=== PATIENT | male | born 1955 | race African-American/Black ===

== ENCOUNTER 2017-03-16 16:45 | Inpatient (IN) | payer OTHER ==
[~2017-03-16] VITALS: Ht 175.3 cm; Wt 77.6 kg
[2017-03-16 19:30] LABS: INR 1.1; PROTHROMBIN TIME 11.9 sec (9.4-11.6)
[2017-03-16 19:32] LABS: BASOPHILS % 0.6 % (0.0-2.0); EOSINOPHILS % 1.1 % (0.0-5.0); HEMATOCRIT. 40.3 % (42.0-52.0); HEMOGLOBIN. 13.5 g/dL (14.0-18.0); LYMPHOCYTES % 38.1 % (20.0-50.0); MEAN CORPUSCULAR HEMOGLOBIN 33.4 pg (28.0-32.0); MEAN CORPUSCULAR VOLUME 99.8 fL (80.0-94.0); MEAN PLATELET VOLUME 8.6 fl (7.4-10.4); MONOCYTES % 5.6 % (2.0-8.0); NEUTROPHILS % 54.6 % (40.0-76.0); PLATELET 178 x1000/uL (130-400); RED BLOOD CELL COUNT 4.04 mill/uL (4.7-6.1); RED CELL DISTRIBUTION WIDTH 14.8 % (11.6-14.6)
[2017-03-16 19:34] LABS: CLARITY URINE CLEAR (CLEAR); COLOR URINE DARK YELLOW (YELLOW); KETONES URINE NEGATIVE (NEGATIVE); LEUKOCYTE ESTERASE URINE TRACE (NEGATIVE); NITRITE URINE NEGATIVE (NEGATIVE); OCCULT BLOOD URINE NEGATIVE (NEGATIVE); PROTEIN URINE 1+ (NEGATIVE)
[2017-03-16 19:41] LABS: CARBON DIOXIDE 24 mEq/L (21-32); CHLORIDE 107 mEq/L (98-107); TROPONIN I 0.07 ng/mL (0.00-0.04)
[2017-03-16 19:55] LABS: *AMPHETAMINES SCREEN URINE NEGATIVE (NEGATIVE); *BARBITURATES SCREEN URINE NEGATIVE (NEGATIVE); *BENZODIAZEPINES SCREEN URINE NEGATIVE (NEGATIVE); *COCAINE SCREEN URINE NEGATIVE (NEGATIVE); CANNABINOID URINE SCREEN NEGATIVE (NEGATIVE); METHADONE URINE SCREEN NEGATIVE (NEGATIVE); OPIATES URINE SCREEN NEGATIVE (NEGATIVE); PHENCYCLIDINE URINE SCREEN NEGATIVE (NEGATIVE)
[2017-03-16] MEDS ORDERED: SODIUM CHLORIDE 0.9% 1,000 ML IV ONE (20:15)
[2017-03-16] MEDS ORDERED: ONDANSETRON HCL 4MG/2ML VIAL IV ONE (20:15)
[2017-03-16] MEDS ORDERED: ACETAMINOPHEN 325MG TABLET PO PRN (23:30)
[2017-03-16] MEDS ORDERED: MAGNESIUM 2 G PREMIX 50 ML IV NR (23:30)
[2017-03-16] MEDS ORDERED: ONDANSETRON HCL 4MG/2ML VIAL IV PRN (23:30)
[2017-03-16] MEDS: FUROSEMIDE 40MG/4ML VIAL IV SCH (23:30)
[2017-03-16] MEDS ORDERED: CLONIDINE 0.1MG TABLET PO PRN (23:30)
[2017-03-16] MEDS ORDERED: IPRATROPIUM/ALBUTEROL 0.5-3(2.5)MG/3ML NEB INH PRN (23:30)
[2017-03-16] MEDS ORDERED: MAGNESIUM/ALUMINUM HYDROXIDE/SIMETHICONE 30ML UDC PO PRN (23:30)
[2017-03-16] MEDS ORDERED: AZITHROMYCIN 500 MG TABLET PO SCH (23:30)
[2017-03-17] MEDS ORDERED: FUROSEMIDE 40MG/4ML VIAL IV NR (00:30)
[2017-03-17 01:07] LABS: ETHANOL BLOOD < 10 mg/dL
[2017-03-17 05:47] LABS: BASOPHILS % 0.8 % (0.0-2.0); HEMATOCRIT. 40.3 % (42.0-52.0); HEMOGLOBIN. 13.5 g/dL (14.0-18.0); LYMPHOCYTES % 35.1 % (20.0-50.0); MEAN CORPUSCULAR HEMOGLOBIN 33.6 pg (28.0-32.0); MEAN CORPUSCULAR VOLUME 100.1 fL (80.0-94.0); MEAN PLATELET VOLUME 8.3 fl (7.4-10.4); NEUTROPHILS % 56.1 % (40.0-76.0); PLATELET 181 x1000/uL (130-400); RED BLOOD CELL COUNT 4.03 mill/uL (4.7-6.1); RED CELL DISTRIBUTION WIDTH 14.8 % (11.6-14.6)
[2017-03-17 06:08] LABS: CARBON DIOXIDE 26 mEq/L (21-32); CHLORIDE 108 mEq/L (98-107); CREATINE KINASE 162 IU/L (39-308); HDL CHOLESTEROL 26 mg/dL (40-59); LDL CHOLESTEROL 107 mg/dL (5-100); TROPONIN I 0.05 ng/mL (0.00-0.04)
[2017-03-17 06:13] LABS: CREATINE KINASE MB FRACTION 3.2 ng/mL (0.5-3.6)
[2017-03-17 08:47] VITALS: BP 139/94
[2017-03-17] MEDS ORDERED: AZITHROMYCIN 500 MG TABLET PO SCH (09:00)
[2017-03-17] MEDS ORDERED: FUROSEMIDE 40MG/4ML VIAL IV SCH (09:00)
[2017-03-17] MEDS: FUROSEMIDE 40MG/4ML VIAL IV SCH (09:56)
[2017-03-17] MEDS: ENOXAPARIN 40MG/0.4ML SYR SUBCUT SCH (09:56)
[2017-03-17 11:52] VITALS: BP 139/84
[2017-03-17 13:41] LABS: HEPATITIS B SURFACE ANTIGEN NEGATIVE
[2017-03-17 14:09] LABS: HEPATITIS A AB IGM NEGATIVE (NEGATIVE)
[2017-03-17 14:55] LABS: CREATINE KINASE MB FRACTION 2.8 ng/mL (0.5-3.6); TROPONIN I 0.05 ng/mL (0.00-0.04)
[2017-03-17 15:02] LABS: HEPATITIS B CORE AB IGM REACTIVE
[2017-03-17 16:03] VITALS: BP 137/84
[2017-03-17 20:00] VITALS: BP 141/72
[2017-03-17] MEDS: ATORVASTATIN CALCIUM 10MG TABLET PO SCH (20:19)
[2017-03-17 23:40] VITALS: BP 137/78
[2017-03-18 04:00] VITALS: BP 140/88
[2017-03-18 06:48] LABS: BASOPHILS % 0.6 % (0.0-2.0); EOSINOPHILS % 1.3 % (0.0-5.0); HEMATOCRIT. 40.4 % (42.0-52.0); HEMOGLOBIN. 13.6 g/dL (14.0-18.0); LYMPHOCYTES % 33.1 % (20.0-50.0); MEAN CORPUSCULAR HEMOGLOBIN 33.5 pg (28.0-32.0); MEAN CORPUSCULAR VOLUME 99.4 fL (80.0-94.0); MONOCYTES % 6.1 % (2.0-8.0); NEUTROPHILS % 58.9 % (40.0-76.0); PLATELET 176 x1000/uL (130-400); RED BLOOD CELL COUNT 4.07 mill/uL (4.7-6.1); RED CELL DISTRIBUTION WIDTH 14.4 % (11.6-14.6)
[2017-03-18 07:11] LABS: CHLORIDE 103 mEq/L (98-107)
[2017-03-18 07:23] LABS: CARBON DIOXIDE 24 mEq/L (21-32)
[2017-03-18 07:26] VITALS: BP 148/83
[2017-03-18] MEDS: FUROSEMIDE 40MG/4ML VIAL IV SCH (08:53)
[2017-03-18] MEDS: ENOXAPARIN 40MG/0.4ML SYR SUBCUT SCH (08:53)
[2017-03-18] MEDS: POTASSIUM CHLORIDE 20MEQ TABLET SR PO SCH (11:29)
[2017-03-18] MEDS: AZITHROMYCIN 500 MG TABLET PO SCH (11:30)
[2017-03-18] MEDS: LISINOPRIL 5MG TABLET PO SCH (11:30)
[2017-03-18 12:52] VITALS: BP 135/95
[2017-03-18 16:00] VITALS: BP 141/92
[2017-03-18 20:00] VITALS: BP 129/87
[2017-03-18] MEDS: AMIODARONE HCL 200 MG TABLET PO SCH (21:15)
[2017-03-18] MEDS: ATORVASTATIN CALCIUM 10MG TABLET PO SCH (21:15)
[2017-03-18] MEDS: CARVEDILOL 6.25 MG TABLET PO SCH (21:16)
[2017-03-18] MEDS: CEFTRIAXONE 1 G PREMIX 50 ML IV SCH (21:33)
[2017-03-18] MEDS: ZOLPIDEM TARTRATE 5MG TABLET PO PRN (21:50)
[2017-03-19] VITALS: BP 135/66
[2017-03-19 04:00] VITALS: BP 122/71
[2017-03-19 06:16] LABS: BASOPHILS % 0.7 % (0.0-2.0); EOSINOPHILS % 1.5 % (0.0-5.0); HEMATOCRIT. 39.2 % (42.0-52.0); HEMOGLOBIN. 13.1 g/dL (14.0-18.0); LYMPHOCYTES % 38.6 % (20.0-50.0); MEAN CORPUSCULAR HEMOGLOBIN 33.3 pg (28.0-32.0); MEAN CORPUSCULAR VOLUME 99.7 fL (80.0-94.0); MEAN PLATELET VOLUME 8.8 fl (7.4-10.4); MONOCYTES % 5.7 % (2.0-8.0); NEUTROPHILS % 53.5 % (40.0-76.0); PLATELET 173 x1000/uL (130-400); RED BLOOD CELL COUNT 3.94 mill/uL (4.7-6.1); RED CELL DISTRIBUTION WIDTH 14.6 % (11.6-14.6)
[2017-03-19 08:04] VITALS: BP 130/82
[2017-03-19] MEDS: LISINOPRIL 5MG TABLET PO SCH (08:13)
[2017-03-19] MEDS: AZITHROMYCIN 500 MG TABLET PO SCH (08:13)
[2017-03-19] MEDS: CARVEDILOL 6.25 MG TABLET PO SCH (08:13)
[2017-03-19] MEDS: AMIODARONE HCL 200 MG TABLET PO SCH ×3 (08:13→18:41)
[2017-03-19] MEDS: POTASSIUM CHLORIDE 20MEQ TABLET SR PO SCH (08:13)
[2017-03-19] MEDS: ENOXAPARIN 40MG/0.4ML SYR SUBCUT SCH (08:14)
[2017-03-19] MEDS: FUROSEMIDE 40MG/4ML VIAL IV SCH (08:14)
[2017-03-19 08:30] LABS: CARBON DIOXIDE 24 mEq/L (21-32); CHLORIDE 105 mEq/L (98-107)
[2017-03-19 11:55] VITALS: BP 96/64
[2017-03-19 15:57] VITALS: BP 105/79
[2017-03-19 20:00] VITALS: BP 126/69
[2017-03-19] MEDS: CARVEDILOL 12.5MG TABLET PO SCH (20:27)
[2017-03-19] MEDS: CEFTRIAXONE 1 G PREMIX 50 ML IV SCH (20:28)
[2017-03-19] MEDS: ATORVASTATIN CALCIUM 10MG TABLET PO SCH (20:33)
[2017-03-20] VITALS: BP 100/61
[2017-03-20] MEDS: ZOLPIDEM TARTRATE 5MG TABLET PO PRN (00:50)
[2017-03-20 04:00] VITALS: BP 118/52
[2017-03-20 06:44] LABS: BASOPHILS % 0.7 % (0.0-2.0); EOSINOPHILS % 1.1 % (0.0-5.0); HEMATOCRIT. 39.8 % (42.0-52.0); HEMOGLOBIN. 12.9 g/dL (14.0-18.0); LYMPHOCYTES % 34.3 % (20.0-50.0); MEAN CORPUSCULAR HEMOGLOBIN 32.5 pg (28.0-32.0); MEAN CORPUSCULAR VOLUME 99.9 fL (80.0-94.0); MEAN PLATELET VOLUME 8.7 fl (7.4-10.4); MONOCYTES % 5.4 % (2.0-8.0); NEUTROPHILS % 58.5 % (40.0-76.0); PLATELET 195 x1000/uL (130-400); RED BLOOD CELL COUNT 3.98 mill/uL (4.7-6.1); RED CELL DISTRIBUTION WIDTH 14.8 % (11.6-14.6)
[2017-03-20 07:54] VITALS: BP 110/71
[2017-03-20] MEDS: AMIODARONE HCL 200 MG TABLET PO SCH (08:13)
[2017-03-20] MEDS: LISINOPRIL 5MG TABLET PO SCH (08:13)
[2017-03-20] MEDS: CARVEDILOL 12.5MG TABLET PO SCH (08:13)
[2017-03-20] MEDS: FUROSEMIDE 40MG/4ML VIAL IV SCH (08:13)
[2017-03-20] MEDS: ENOXAPARIN 40MG/0.4ML SYR SUBCUT SCH (08:13)
[2017-03-20] MEDS: POTASSIUM CHLORIDE 20MEQ TABLET SR PO SCH (08:13)
[2017-03-20] MEDS: AZITHROMYCIN 500 MG TABLET PO SCH (08:13)
[2017-03-20 08:14] LABS: CHLORIDE 105 mEq/L (98-107)
[2017-03-20 08:34] LABS: CARBON DIOXIDE 23 mEq/L (21-32)
[2017-03-20] MEDS ORDERED: ATOR10TA PO (12:15)
[2017-03-20] MEDS ORDERED: LISI-186 PO (12:15)
[2017-03-20] MEDS ORDERED: COR12 PO (12:15)
[2017-03-20] MEDS ORDERED: POTA20TA82 PO (12:15)
[2017-03-20] MEDS ORDERED: AZIT500T5 PO (12:15)
[2017-03-20] MEDS ORDERED: FURO-151 PO (12:15)
[2017-03-20] MEDS ORDERED: AMI2 PO (12:15)
[2017-03-20 12:24] VITALS: BP 110/71
== END 2017-03-20 13:30 | disposition home or self-care (01) | DRG 291 ==
LOC: ER 18:14 → 8WST 21:00 → ENRESERV 03-17 06:57
PROVIDERS: ADMIT Internal Medicine; ATTEND Internal Medicine
DX: I11.0 Hypertensive heart disease with heart failure (principal); J18.9 Pneumonia, unspecified organism; I27.20 Pulmonary hypertension, unspecified; E86.0 Dehydration; B16.9 Acute hepatitis B without delta-agent and without hepatic coma; I42.0 Dilated cardiomyopathy; E83.42 Hypomagnesemia; E83.51 Hypocalcemia; I47.1 Supraventricular tachycardia; J44.0 Chronic obstructive pulmonary disease with (acute) lower respiratory infection; N39.0 Urinary tract infection, site not specified; I50.23 Acute on chronic systolic (congestive) heart failure; I42.9 Cardiomyopathy, unspecified; D53.9 Nutritional anemia, unspecified; E78.5 Hyperlipidemia, unspecified; F17.210 Nicotine dependence, cigarettes, uncomplicated; R79.1 Abnormal coagulation profile; R16.0 Hepatomegaly, not elsewhere classified; R74.0 Nonspecific elevation of levels of transaminase and lactic acid dehydrogenase [LDH]; K30 Functional dyspepsia; R74.8 Abnormal levels of other serum enzymes
CPT/HCPCS: 36415; 71010; 76705; 80048; 80053; 80061; 80305; 81001; 82550; 82553; 83036; 83735; 83880; 84443; 84484; 85025; 85610; 86703; 86705; 86709; 86803; 87040; 87070; 87077; 87086; 87186; 87340; 87430; 87517; 87804; 93005; 93306; 93970; 96361; 96374; 96375; 96376; 99285; G0482; J0696; J1650; J1940; J2405; J3475; J7030; J7050

== ENCOUNTER 2019-12-13 00:48 | Inpatient (IN) | payer SELFPAY ==
[~2019-12-13] VITALS: Ht 175.3 cm; Wt 86.6 kg
[~2019-12-13 00:48] MED LIST: AMI2 PO; ATOR10TA PO; AZIT500T8 PO; COR12 PO; FURO-151 PO; LISI-186 PO; POTA20TA82 PO
[2019-12-13] MEDS ORDERED: NITROGLYCERIN 0.4MG TABLET SL SL PRN (03:00)
[2019-12-13] MEDS ORDERED: ASPIRIN 81MG TABLET PO ONE (03:00)
[2019-12-13 04:06] LABS: BASOPHILS % 0.8 % (0.0-2.0); EOSINOPHILS % 1.4 % (0.0-5.0); HEMATOCRIT. 37.1 % (42.0-52.0); HEMOGLOBIN. 12.4 g/dL (14.0-18.0); LYMPHOCYTES % 36.7 % (20.0-50.0); MEAN CORPUSCULAR VOLUME 101.8 fL (80.0-94.0); MEAN PLATELET VOLUME 8.6 fl (7.4-10.4); MONOCYTES % 6.1 % (2.0-8.0); PLATELET 152 x1000/uL (130-400); RED BLOOD CELL COUNT 3.64 mill/uL (4.7-6.1); RED CELL DISTRIBUTION WIDTH 15.8 % (11.6-14.6)
[2019-12-13 04:12] LABS: CHLORIDE 108 mEq/L (98-107)
[2019-12-13 10:20] VITALS: BP 146/86
[2019-12-13] MEDS ORDERED: DIPHENHYDRAMINE 50MG/ML VIAL IV PRN (11:15)
[2019-12-13] MEDS ORDERED: ACETAMINOPHEN 325MG TABLET PO PRN ×2 (11:15)
[2019-12-13] MEDS ORDERED: ONDANSETRON HCL 4MG/2ML INJ IV PRN (11:15)
[2019-12-13] MEDS ORDERED: CLONIDINE 0.1MG TABLET PO PRN (11:15)
[2019-12-13] MEDS ORDERED: GUAIFENESIN 200MG/10ML SUGAR FREE UDC PO PRN (11:15)
[2019-12-13] MEDS ORDERED: MAGNESIUM/ALUMINUM HYDROXIDE/SIMETHICONE 30ML UDC PO PRN (11:15)
[2019-12-13] MEDS: POTASSIUM CHLORIDE 20MEQ TABLET SR PO SCH ×2 (11:24→17:21)
[2019-12-13] MEDS: FUROSEMIDE 40MG/4ML VIAL IVP SCH ×2 (11:24→17:21)
[2019-12-13] MEDS: CARVEDILOL 6.25 MG TABLET PO SCH ×2 (11:24→21:47)
[2019-12-13 12:00] VITALS: BP 117/70
[2019-12-13] MEDS: SODIUM CHLORIDE 0.9% INJ 3ML FLUSH IVF SCH ×2 (14:59→22:34)
[2019-12-13 16:00] VITALS: BP 134/83
[2019-12-13 20:00] VITALS: BP 148/88
[2019-12-13] MEDS ORDERED: ZOLPIDEM TARTRATE 5MG TABLET PO PRN (21:00)
[2019-12-13] MEDS ORDERED: FAMOTIDINE 20MG TABLET PO SCH (21:00)
[2019-12-14] VITALS: BP 127/70
[2019-12-14 04:00] VITALS: BP 151/91
[2019-12-14 06:25] LABS: BASOPHILS % 0.7 % (0.0-2.0); EOSINOPHILS % 0.6 % (0.0-5.0); HEMATOCRIT. 38.7 % (42.0-52.0); HEMOGLOBIN. 12.6 g/dL (14.0-18.0); LYMPHOCYTES % 31.5 % (20.0-50.0); MEAN CORPUSCULAR HEMOGLOBIN 33.3 pg (28.0-32.0); MEAN CORPUSCULAR VOLUME 102.4 fL (80.0-94.0); MEAN PLATELET VOLUME 8.5 fl (7.4-10.4); MONOCYTES % 6.4 % (2.0-8.0); NEUTROPHILS % 60.8 % (40.0-76.0); PLATELET 164 x1000/uL (130-400); RED BLOOD CELL COUNT 3.78 mill/uL (4.7-6.1); RED CELL DISTRIBUTION WIDTH 16.1 % (11.6-14.6)
[2019-12-14] MEDS: SODIUM CHLORIDE 0.9% INJ 3ML FLUSH IVF SCH (06:34)
[2019-12-14] MEDS: FUROSEMIDE 40MG/4ML VIAL IVP SCH (06:34)
[2019-12-14 06:37] LABS: CHLORIDE 106 mEq/L (98-107)
[2019-12-14 08:00] VITALS: BP 148/83
[2019-12-14] MEDS ORDERED: POTASSIUM CHLORIDE 20MEQ TABLET SR PO NR (08:30)
[2019-12-14] MEDS ORDERED: LISINOPRIL 20MG TABLET PO SCH (09:00)
[2019-12-14] MEDS: CARVEDILOL 6.25 MG TABLET PO SCH (09:28)
[2019-12-14] MEDS: POTASSIUM CHLORIDE 20MEQ TABLET SR PO SCH (09:28)
[2019-12-14 12:00] VITALS: BP 120/46
[2019-12-14 15:44] VITALS: BP 121/74
[2019-12-14 16:00] VITALS: BP 121/74
== END 2019-12-14 16:30 | disposition home or self-care (01) | DRG 194 ==
LOC: ER 02:31 → 5WST 05:31 → EDBEDREQ 06:02 → ENRESERV 09:59
PROVIDERS: ADMIT Internal Medicine; ATTEND Internal Medicine
DX: I11.0 Hypertensive heart disease with heart failure (principal); E78.5 Hyperlipidemia, unspecified; E87.6 Hypokalemia; F17.210 Nicotine dependence, cigarettes, uncomplicated; I27.20 Pulmonary hypertension, unspecified; I42.0 Dilated cardiomyopathy; J44.9 Chronic obstructive pulmonary disease, unspecified; I50.43 Acute on chronic combined systolic (congestive) and diastolic (congestive) heart failure; J96.90 Respiratory failure, unspecified, unspecified whether with hypoxia or hypercapnia; Z79.899 Other long term (current) drug therapy; Z82.3 Family history of stroke; Z82.49 Family history of ischemic heart disease and other diseases of the circulatory system; Z83.3 Family history of diabetes mellitus; Z91.14 Patient's other noncompliance with medication regimen; Z91.19 Patient's noncompliance with other medical treatment and regimen; Z86.19 Personal history of other infectious and parasitic diseases
CPT/HCPCS: 36415; 71045; 80048; 80053; 83880; 84484; 85025; 93005; 93306; 93970; 99285; J1940